=== PATIENT | male | born 1960 | race Caucasian/White ===

== ENCOUNTER 2020-10-08 09:37 | Outpatient (CLI) | payer OTHER | END 2020-10-08 09:38 | disposition home or self-care (01) | LOC: CTENTCT 09:37 | PROVIDERS: ATTEND Specialist | DX: J34.2 Deviated nasal septum (principal) | CPT/HCPCS: 70486 ==

== ENCOUNTER 2020-10-25 16:41 | Outpatient (CLI) | payer OTHER ==
[2020-10-26 04:51] LABS: SARS-CoV-2 PCR by NAA Not Detected (NotDetected)
== END 2020-10-25 16:42 | disposition home or self-care (01) ==
LOC: LABBT 16:41
PROVIDERS: ATTEND Specialist
DX: Z01.818 Encounter for other preprocedural examination (principal); Z20.822 Contact with and (suspected) exposure to COVID-19
CPT/HCPCS: 87635; 93005; 93010; U0003; U0005

== ENCOUNTER 2020-10-28 11:40 | Day surgery (SDC) | payer OTHER ==
[2020-10-27 09:43] VITALS: BMI 39.5
[2020-10-28] MEDS ORDERED: AFRIN NASAL MIST 15 ML BOT ONE ×2 (13:14→14:43)
[2020-10-28] MEDS ORDERED: Midazolam HCl 2 mg/2 ml Vial ONE ×2 (14:42→14:57)
[2020-10-28] MEDS ORDERED: Bacitracin Zinc Ointment 30 gm TUBE ONE (14:43)
[2020-10-28] MEDS ORDERED: EPINEPHrine 1 MG/ML AMP ONE (14:43)
[2020-10-28] MEDS ORDERED: Lidocaine 1% w/Epinephrine 1:100K 20 ML VIAL ONE (14:43)
[2020-10-28] MEDS ORDERED: Fentanyl 250 MCG/5 ML VIAL ONE (14:57)
[2020-10-28] MEDS ORDERED: Lidocaine 1% PF 5 ML VIAL ONE (15:26)
[2020-10-28] MEDS ORDERED: Dexamethasone 20 MG/5 ML VIAL ONE (15:26)
[2020-10-28] MEDS ORDERED: Rocuronium Bromide 10 MG/ML (10ML VIAL) ONE (15:26)
[2020-10-28] MEDS ORDERED: PROPOFOL 200 MG/20 ML VIAL ONE (15:26)
[2020-10-28] MEDS ORDERED: Ondansetron PF 4 MG/2 ML Vial ONE (15:26)
[2020-10-28] MEDS ORDERED: Glycopyrrolate 0.2 MG/ML 5 ML SYRINGE ONE (15:26)
[2020-10-28] MEDS ORDERED: Triamcinolone 40 MG/ML VIAL ONE (16:09)
[2020-10-28] MEDS ORDERED: Fentanyl 100 MCG/2 ML VIAL ONE (16:45)
[2020-10-28] MEDS ORDERED: Hydrocodone-Acetamin 15 ML UDCUP ONE (17:37)
[2020-10-28] MEDS ORDERED: Meperidine HCl/PF 25 MG/ML VIAL ONE (17:58)
== END 2020-10-28 18:50 | disposition home or self-care (01) ==
LOC: SDC 11:40
PROVIDERS: ATTEND Specialist
PROC: 09CM8ZZ Extirpation of Matter from Nasal Septum, Via Natural or Artificial Opening Endoscopic (ICD-10-PCS; principal; 2020-10-28)
PROC: 099R8ZZ Drainage of Left Maxillary Sinus, Via Natural or Artificial Opening Endoscopic (ICD-10-PCS; principal; 2020-10-28)
PROC: 09BT8ZZ Excision of Left Frontal Sinus, Via Natural or Artificial Opening Endoscopic (ICD-10-PCS; principal; 2020-10-28)
PROC: 09BV8ZZ Excision of Left Ethmoid Sinus, Via Natural or Artificial Opening Endoscopic (ICD-10-PCS; principal; 2020-10-28)
PROC: 099Q8ZZ Drainage of Right Maxillary Sinus, Via Natural or Artificial Opening Endoscopic (ICD-10-PCS; principal; 2020-10-28)
PROC: 09BS8ZZ Excision of Right Frontal Sinus, Via Natural or Artificial Opening Endoscopic (ICD-10-PCS; principal; 2020-10-28)
PROC: 09BU8ZZ Excision of Right Ethmoid Sinus, Via Natural or Artificial Opening Endoscopic (ICD-10-PCS; principal; 2020-10-28)
PROC: 09BL8ZZ Excision of Nasal Turbinate, Via Natural or Artificial Opening Endoscopic (ICD-10-PCS; principal; 2020-10-28)
DX: J32.9 Chronic sinusitis, unspecified (principal); J34.2 Deviated nasal septum; J34.3 Hypertrophy of nasal turbinates; J34.89 Other specified disorders of nose and nasal sinuses; J33.8 Other polyp of sinus; M19.90 Unspecified osteoarthritis, unspecified site; Z79.899 Other long term (current) drug therapy; Z88.5 Allergy status to narcotic agent; Z87.891 Personal history of nicotine dependence
CPT/HCPCS: J0171; J1100; J2175; J2250; J2405; J2704; J3010; J3301

== ENCOUNTER 2020-11-02 17:56 | Observation (INO) | payer OTHER ==
[2020-11-02] MEDS ORDERED: Ondansetron ODT 4 MG TAB PO PRN (20:44)
[2020-11-02] MEDS ORDERED: Acetaminophen 650 MG Suppository PR PRN (20:44)
[2020-11-02] MEDS ORDERED: Ondansetron PF 4 MG/2 ML Vial IVP PRN (20:44)
[2020-11-02] MEDS ORDERED: Morphine 2 MG/ML VIAL SLOW IVP SCH (20:45)
[2020-11-02] MEDS ORDERED: Heparin 5,000 UNITS/ML VIAL SC SCH (21:00)
[2020-11-02 21:29] LABS: Lactic Acid 1.6 mmol/L (0.5-2.2)
[2020-11-02 21:35] LABS: Albumin 3.9 g/dL (3.4-4.8); Anion Gap 16 mmol/L (10-20); BUN (Urea Nitrogen) 27 mg/dL (8.4-25.7); BUN/Creatinine Ratio 13.64; CK (CPK) 53 U/L (30-200); Calc. Creatinine Clearance 0 mL/min (70-130); Calcium 9.3 mg/dL (7.8-10.44); Carbon Dioxide 20 mmol/L (23-31); Chloride 102 mmol/L (98-107); Glucose 144 mg/dL (80-115); Lipase 26 U/L (8-78); Magnesium 2.1 mg/dL (1.6-2.6); Phosphorus 4.1 mg/dL (2.3-4.7); Potassium 4.5 mmol/L (3.5-5.1); Sodium 133 mmol/L (136-145)
[2020-11-02] MEDS: traMADol HCl 50 MG TAB PO PRN (22:55)
[2020-11-02 23:12] VITALS: BMI 38.7
[2020-11-03] MEDS ORDERED: Sodium Chloride 0.9% 1,000 ML IV SCH (00:15)
[2020-11-03] MEDS: Sodium Chloride 0.9% 1,000 ML IV SCH ×2 (00:21→20:12)
[2020-11-03] MEDS ORDERED: Morphine 2 MG/ML VIAL SLOW IVP SCH (00:30)
[2020-11-03] MEDS: traMADol HCl 50 MG TAB PO PRN ×3 (03:22→20:15)
[2020-11-03] MEDS: Acetaminophen 325 MG TAB PO PRN ×2 (03:25→20:07)
[2020-11-03 03:59] LABS: #Basophils 0.1 thou/uL (0.0-0.2); #Lymphocytes 1.6 thou/uL (1.20-3.40); #Monocytes 1.4 thou/uL (0.11-0.59); #Neutrophils 10.3 thou/uL (1.40-6.50); %Basophils 0.4 % (0.0-1.0); %Eosinophils 0.1 % (0.0-10.0); %Lymphocytes 12.1 % (21.0-51.0); %Monocytes 10.2 % (0.0-10.0); %Neutrophils 77.2 % (42.0-75.0); Hemoglobin 13.8 g/dL (14.0-18.0); Mean Corpuscular HGB CONC 33.6 g/dL (32.0-36.0); Mean Corpuscular Hemoglobin 30.5 pg (27.0-31.0); Mean Corpuscular Volume 90.8 fL (78.0-98.0); Mean Platelet Volume 7.9 fL (7.4-10.4); Platelet Count 268 thou/uL (130-400); RBC Distribution Width 12.6 % (11.5-14.5); Red Blood Cell (RBC) Count 4.52 mill/uL (4.70-6.10); White Blood Cell (WBC) Count 13.4 thou/uL (4.8-10.8)
[2020-11-03 04:05] LABS: PTT 30.7 sec (22.9-36.1); Prothrombin Time 13.3 sec (12.0-14.7)
[2020-11-03 04:19] LABS: ALT (SGPT) 62 U/L (8-55); AST (SGOT) 23 U/L (5-34); Albumin 3.7 g/dL (3.4-4.8); Alkaline Phosphatase 96 U/L (40-110); Anion Gap 13 mmol/L (10-20); BUN (Urea Nitrogen) 25 mg/dL (8.4-25.7); Bilirubin, Total 0.6 mg/dL (0.2-1.2); Calc. Creatinine Clearance 91 mL/min (70-130); Calcium 8.9 mg/dL (7.8-10.44); Carbon Dioxide 23 mmol/L (23-31); Chloride 106 mmol/L (98-107); Globulin 3.3 g/dL (2.4-3.5); Glucose 119 mg/dL (80-115); Potassium 4.9 mmol/L (3.5-5.1); Sodium 137 mmol/L (136-145)
[2020-11-03] MEDS: MEROPENEM 1 GM/50 ML 1 GM in Premix Bag 1 BAG IVPB SCH ×2 (04:29→15:51)
[2020-11-03] MEDS ORDERED: VANCOMYCIN 2 GRAM/400 ML BAG 2 GM in Premix Bag 1 BAG IVPB SCH (05:00)
[2020-11-03] MEDS ORDERED: Fentanyl 100 MCG/2 ML VIAL ONE (06:39)
[2020-11-03] MEDS ORDERED: SUGAMMADEX SODIUM 500 MG/5 ML VIAL ONE (06:39)
[2020-11-03 08:44] LABS: SARS-CoV-2 NAA Rapid Test Not Detected (NotDetected)
[2020-11-03] MEDS ORDERED: Iothalamate Meglumine 60% 50 ML VIAL FS ONE (08:48)
[2020-11-03] MEDS ORDERED: AFRIN NASAL MIST 15 ML BOT ONE (08:51)
[2020-11-03] MEDS ORDERED: Rocuronium Bromide 10 MG/ML (10ML VIAL) ONE (09:14)
[2020-11-03] MEDS ORDERED: Ondansetron PF 4 MG/2 ML Vial ONE (09:14)
[2020-11-03] MEDS ORDERED: Lidocaine 1% PF 5 ML VIAL ONE (09:14)
[2020-11-03] MEDS ORDERED: PHENYLEPHRINE-NS 100 MCG/ML 10 ML SYRINGE ONE (09:14)
[2020-11-03] MEDS ORDERED: PROPOFOL 200 MG/20 ML VIAL ONE (09:14)
[2020-11-03] MEDS ORDERED: HYDROcodone/Acetaminophen 5/325 mg Tablet PO PRN ×2 (09:58)
[2020-11-03] MEDS ORDERED: Phenazopyridine HCl 97.5 MG TABLET PO PRN (09:58)
[2020-11-03] MEDS ORDERED: diphenhydrAMINE 25 MG CAP PO PRN (09:58)
[2020-11-03] MEDS ORDERED: Oxybutynin 5 MG TAB PO PRN (09:58)
[2020-11-03] MEDS ORDERED: Promethazine HCl 25 MG/ML VIAL IM PRN (10:04)
[2020-11-03] MEDS ORDERED: HYDROmorphone 2 MG/ML VIAL SLOW IVP PRN (10:04)
[2020-11-03] MEDS ORDERED: Promethazine HCl 25 MG/ML VIAL SLOW IVP PRN (10:04)
[2020-11-03] MEDS ORDERED: Ketorolac Tromethamine 30 MG/ML VIAL IVP PRN (10:04)
[2020-11-03] MEDS ORDERED: Ondansetron HCl/PF 4 MG/2 ML Vial IVP PRN (10:04)
[2020-11-03] MEDS ORDERED: Meperidine HCl/PF 25 MG/ML VIAL SLOW IVP PRN (10:04)
[2020-11-03] MEDS ORDERED: Phenazopyridine HCl 100 MG TAB PO PRN (10:05)
[2020-11-03] MEDS: Famotidine/PF 20 mg/2ml Vial SLOW IVP SCH (20:07)
[2020-11-03] MEDS: Docusate 100 MG CAP PO SCH (20:07)
[2020-11-04] MEDS ORDERED: Sodium Chloride 0.65% Nasal 44 ML BOT EA NARE PRN (02:04)
[2020-11-04] MEDS: MEROPENEM 1 GM/50 ML 1 GM in Premix Bag 1 BAG IVPB SCH (04:50)
[2020-11-04 07:14] LABS: Anion Gap 13 mmol/L (10-20); BUN (Urea Nitrogen) 17 mg/dL (8.4-25.7); Calc. Creatinine Clearance 150 mL/min (70-130); Calcium 8.9 mg/dL (7.8-10.44); Carbon Dioxide 25 mmol/L (23-31); Chloride 103 mmol/L (98-107); Glucose 101 mg/dL (80-115); Potassium 4.5 mmol/L (3.5-5.1); Sodium 136 mmol/L (136-145)
[2020-11-04 07:53] LABS: Hemoglobin 13.1 g/dL (14.0-18.0); Lymphocytes 9 % (21-51); MDiff Complete? YES; Mean Corpuscular HGB CONC 33.5 g/dL (32.0-36.0); Mean Corpuscular Hemoglobin 30.6 pg (27.0-31.0); Mean Corpuscular Volume 91.3 fL (78.0-98.0); Mean Platelet Volume 8.3 fL (7.4-10.4); Monocytes 7 % (0-10); Neutrophil 83 % (42-75); Platelet Count 229 thou/uL (130-400); Platelet Morphology Comment Appears Adequate; RBC Distribution Width 12.5 % (11.5-14.5); RBC Morphology Normal; White Blood Cell (WBC) Count 10.7 thou/uL (4.8-10.8)
[2020-11-04 07:57] VITALS: BP 129/74; TEMP 98.9
[2020-11-04] MEDS ORDERED: Tamsulosin HCl 0.4 MG CAP PO SCH ×2 (09:00)
[2020-11-04] MEDS: Docusate 100 MG CAP PO SCH (09:08)
[2020-11-04] MEDS: Famotidine/PF 20 mg/2ml Vial SLOW IVP SCH (09:08)
== END 2020-11-04 11:20 | disposition home or self-care (01) ==
LOC: T4-A 19:54 → INTOOBSV 19:54 → OBSVTOIN 19:54
PROVIDERS: ADMIT Internal Medicine; ATTEND Family Medicine
PROC: 0T768DZ Dilation of Right Ureter with Intraluminal Device, Via Natural or Artificial Opening Endoscopic (ICD-10-PCS; principal; 2020-11-03)
PROC: BT1DZZZ Fluoroscopy of Right Kidney, Ureter and Bladder (ICD-10-PCS; 2020-11-03)
DX: N13.6 Pyonephrosis (principal); E87.1 Hypo-osmolality and hyponatremia; Z20.822 Contact with and (suspected) exposure to COVID-19; N40.0 Benign prostatic hyperplasia without lower urinary tract symptoms; N17.9 Acute kidney failure, unspecified; E86.9 Volume depletion, unspecified; I12.9 Hypertensive chronic kidney disease with stage 1 through stage 4 chronic kidney disease, or unspecified chronic kidney disease; N18.9 Chronic kidney disease, unspecified; E78.5 Hyperlipidemia, unspecified; Z96.653 Presence of artificial knee joint, bilateral; K21.9 Gastro-esophageal reflux disease without esophagitis; M19.90 Unspecified osteoarthritis, unspecified site; E66.01 Morbid (severe) obesity due to excess calories; E86.0 Dehydration; Z88.5 Allergy status to narcotic agent; Z79.899 Other long term (current) drug therapy; Z68.39 Body mass index [BMI] 39.0-39.9, adult; Z87.891 Personal history of nicotine dependence
CPT/HCPCS: 36415; 71046; 74420; 76770; 80048; 82550; 83605; 83690; 83735; 85025; 87635; 96365; 96372; 96375; 96376; G0378; J2185; J2270; J2405; J2704; J3010; J3370; Q9961; S0028; U0002; U0003; U0005

== ENCOUNTER 2020-11-19 11:14 | Outpatient (CLI) | payer OTHER ==
[2020-11-19] MEDS ORDERED: Furosemide 40 MG/4 ML VIAL ONE (11:29)
== END 2020-11-19 11:15 | disposition home or self-care (01) ==
LOC: CT 11:14 → NM 11:15
PROVIDERS: ATTEND Urology
DX: N13.30 Unspecified hydronephrosis (principal); N28.9 Disorder of kidney and ureter, unspecified; N28.1 Cyst of kidney, acquired
CPT/HCPCS: 74176; 78708; A4641; A9562; J1940

== ENCOUNTER 2021-01-12 09:44 | Outpatient (CLI) | payer OTHER | END 2021-01-12 09:45 | disposition home or self-care (01) | LOC: LABBT 09:44 | PROVIDERS: ATTEND Urology | DX: Z01.818 Encounter for other preprocedural examination (principal); Z12.5 Encounter for screening for malignant neoplasm of prostate; N13.30 Unspecified hydronephrosis; N40.1 Benign prostatic hyperplasia with lower urinary tract symptoms; N28.9 Disorder of kidney and ureter, unspecified; N28.1 Cyst of kidney, acquired; K42.9 Umbilical hernia without obstruction or gangrene; N52.9 Male erectile dysfunction, unspecified; M10.9 Gout, unspecified; R35.1 Nocturia; E66.9 Obesity, unspecified; Z20.822 Contact with and (suspected) exposure to COVID-19 | CPT/HCPCS: 71046; 80048; 81001; 85027; 85610; 85730; 86850; 86900; 86901; 87086; 93005; 93010; U0003; U0005 ==

== ENCOUNTER 2021-01-12 09:45 | Inpatient (IN) | payer OTHER ==
[2021-01-12 13:03] LABS: Hemoglobin 14.7 g/dL (13.5-17.5); Mean Corpuscular HGB CONC 32.5 g/dL (32.0-36.0); Mean Corpuscular Hemoglobin 29.3 pg (27.0-33.0); Mean Corpuscular Volume 90.2 fl (81.2-95.1); Mean Platelet Volume 11.3 fl (7.4-10.4); Platelet Count 251 10x3/uL (150-450); RBC Distribution Width 13.5 % (11.5-14.5); Red Blood Cell (RBC) Count 5.02 10x6/uL (4.32-5.72); White Blood Cell (WBC) Count 7.1 10x3/uL (3.5-10.5)
[2021-01-12 13:05] LABS: INR-International Normal Ratio 0.9; PTT 27.3 sec (22.0-33.0); Prothrombin Time 10.3 sec (9.5-12.1)
[2021-01-12 13:07] LABS: Anion Gap 14 mmol/L (10-20); BUN (Urea Nitrogen) 17 mg/dL (8.4-25.7); Calc. Creatinine Clearance 0 mL/min (70-130); Calcium 9.8 mg/dL (7.8-10.44); Carbon Dioxide 27 mmol/L (23-31); Chloride 105 mmol/L (98-107); Glucose 87 mg/dL (80-115); Potassium 4.6 mmol/L (3.5-5.1); Sodium 141 mmol/L (136-145)
[2021-01-12 13:14] LABS: Bilirubin Neg (Negative); Blood, Urine 25 (Negative); Clarity Clear (Clear); Glucose, Urine (Dipstick) Normal (Negative); Ketone, Urine Negative (Negative); Leukocyte 25 (Negative); Nitrite Negative (Negative); Protein, Urine (Dipstick) 30 mg/dl (Neg-Trace); Urobilinogen Normal mg/dL (Less than 2)
[2021-01-12 13:21] LABS: Bacteria/HPF None Seen HPF (None Seen); Mucous/LPF Rare LPF (<2+); Squamous Epithelial 0-3 HPF (0-3); WBC/HPF 0-3 HPF (0-3)
[2021-01-13 06:31] LABS: SARS-CoV-2 PCR by NAA Not Detected (NotDetected)
[2021-01-13 11:13] VITALS: BMI 39.6
[2021-01-17] MEDS ORDERED: Levofloxacin 500 mg/D5W 100 ml Premix Bag ONE (06:17)
[2021-01-17] MEDS ORDERED: Acetaminophen 500 MG TAB ONE (06:17)
[2021-01-17] MEDS ORDERED: Fentanyl 100 MCG/2 ML VIAL ONE ×3 (06:46→10:56)
[2021-01-17] MEDS ORDERED: Midazolam HCl 2 mg/2 ml Vial ONE (06:47)
[2021-01-17] MEDS ORDERED: Lidocaine 1.5% w/Epi 1:200K 30 ML VIAL (Epid Use) ONE (07:07)
[2021-01-17] MEDS ORDERED: Bupivacaine 0.25% HCL 30 ML VIAL ONE (07:15)
[2021-01-17] MEDS ORDERED: Acetaminophen 325 MG TAB PO PRN (07:20)
[2021-01-17] MEDS ORDERED: Zolpidem Tartrate 5 MG TAB PO PRN (07:30)
[2021-01-17] MEDS ORDERED: Promethazine HCl 25 MG SUPP PR PRN (07:30)
[2021-01-17] MEDS ORDERED: traMADol HCl 50 MG TAB PO PRN (07:30)
[2021-01-17] MEDS ORDERED: Naloxone HCl 0.4 mg/ml Vial IV PRN (07:30)
[2021-01-17] MEDS ORDERED: diphenhydrAMINE 50 MG/ML VIAL IVP PRN (07:30)
[2021-01-17] MEDS ORDERED: Bupivacaine 0.25% 10 ML VIAL EPIDURAL PRN (07:30)
[2021-01-17] MEDS ORDERED: Naloxone HCl 0.4 mg/ml Vial IVP PRN (07:30)
[2021-01-17] MEDS ORDERED: Promethazine HCl 25 MG/ML VIAL IM PRN ×2 (07:30→09:45)
[2021-01-17] MEDS ORDERED: HYDROcodone/Acetaminophen 5/325 mg Tablet PO PRN (07:30)
[2021-01-17] MEDS ORDERED: Hydrocerin (Eucerin) Cream 120 gm Jar TOP PRN (07:30)
[2021-01-17] MEDS ORDERED: diphenhydrAMINE 50 MG/ML VIAL IM PRN (07:30)
[2021-01-17] MEDS ORDERED: Ondansetron PF 4 MG/2 ML Vial IVP PRN (07:30)
[2021-01-17] MEDS ORDERED: PROPOFOL 200 MG/20 ML VIAL ONE (07:35)
[2021-01-17] MEDS ORDERED: Lidocaine 1% PF 5 ML VIAL ONE (07:35)
[2021-01-17] MEDS ORDERED: PHENYLEPHRINE-NS 100 MCG/ML 10 ML SYRINGE ONE (07:35)
[2021-01-17] MEDS ORDERED: Rocuronium Bromide 10 MG/ML (10ML VIAL) ONE (07:35)
[2021-01-17] MEDS ORDERED: Metoclopramide HCl 10 MG/2 ML VIAL ONE (07:35)
[2021-01-17] MEDS ORDERED: ePHEDrine Sulfate 50 MG/10 ML VIAL ONE (07:35)
[2021-01-17] MEDS ORDERED: Ondansetron PF 4 MG/2 ML Vial ONE (07:35)
[2021-01-17] MEDS ORDERED: Glycopyrrolate 0.2 MG/ML 5 ML SYRINGE ONE (07:35)
[2021-01-17] MEDS ORDERED: Mag-Al 1200 mg/1200 mg/30 ML UDCUP PO PRN (09:42)
[2021-01-17] MEDS ORDERED: hydrALAZINE 20 MG/ML VIAL SLOW IVP PRN ×2 (09:42)
[2021-01-17] MEDS ORDERED: Ondansetron HCl/PF 4 MG/2 ML Vial IVP PRN (09:45)
[2021-01-17] MEDS ORDERED: Promethazine HCl 25 MG/ML VIAL IVPB PRN (09:45)
[2021-01-17] MEDS ORDERED: cefTRIAXone\\ROCEPHIN 1 GM in Sodium Chloride 0.9% 100 ML IVPB SCH (10:00)
[2021-01-17 10:53] LABS: #Eosinphils 0.1 thou/uL (0.0-0.7); #Lymphocytes 1.3 thou/uL (1.20-3.40); #Monocytes 0.9 thou/uL (0.11-0.59); #Neutrophils 11.9 thou/uL (1.40-6.50); %Basophils 0.3 % (0.0-1.0); %Eosinophils 0.8 % (0.0-10.0); %Lymphocytes 9.1 % (21.0-51.0); %Monocytes 6.6 % (0.0-10.0); %Neutrophils 83.2 % (42.0-75.0); Mean Corpuscular HGB CONC 34.1 g/dL (32.0-36.0); Mean Corpuscular Hemoglobin 31.2 pg (27.0-31.0); Mean Corpuscular Volume 91.3 fL (78.0-98.0); Mean Platelet Volume 8.2 fL (7.4-10.4); Platelet Count 225 thou/uL (130-400); White Blood Cell (WBC) Count 14.3 thou/uL (4.8-10.8)
[2021-01-17 11:18] LABS: Anion Gap 14 mmol/L (10-20); BUN (Urea Nitrogen) 15 mg/dL (8.4-25.7); Calc. Creatinine Clearance 103 mL/min (70-130); Calcium 8.9 mg/dL (7.8-10.44); Carbon Dioxide 21 mmol/L (23-31); Chloride 109 mmol/L (98-107); Glucose 149 mg/dL (80-115); Potassium 4.3 mmol/L (3.5-5.1); Sodium 140 mmol/L (136-145)
[2021-01-17] MEDS: HYDROcodone/Acetaminophen 5/325 mg Tablet PO PRN ×2 (13:53→17:28)
[2021-01-17] MEDS: Sodium Chloride 0.9% 1,000 ML IV SCH ×3 (13:54→22:30)
[2021-01-17] MEDS: cefTRIAXone\\ROCEPHIN 1 GM in Sodium Chloride 0.9% 100 ML IVPB SCH (15:46)
[2021-01-17] MEDS: diphenhydrAMINE 25 MG CAP PO PRN ×2 (19:03→22:30)
[2021-01-17] MEDS: Amlodipine 5 MG TAB PO SCH (20:15)
[2021-01-17] MEDS: Famotidine/PF 20 mg/2ml Vial SLOW IVP SCH (20:18)
[2021-01-17] MEDS: Tamsulosin HCl 0.4 MG CAP PO SCH (20:18)
[2021-01-17] MEDS: Atorvastatin Calcium 20 MG TAB PO SCH (20:18)
[2021-01-17] MEDS: Docusate 100 MG CAP PO SCH (20:20)
[2021-01-17] MEDS: Fentanyl 5 mcg/Bup 0.075% Cadd 100 ML EPIDURAL SCH (20:20)
[2021-01-17] MEDS ORDERED: Allopurinol 300 MG TAB PO SCH (21:00)
[2021-01-18] MEDS: traMADol HCl 50 MG TAB PO PRN (04:35)
[2021-01-18 05:46] LABS: #Lymphocytes 1.3 thou/uL (1.20-3.40); #Monocytes 1.2 thou/uL (0.11-0.59); #Neutrophils 6.3 thou/uL (1.40-6.50); %Basophils 0.1 % (0.0-1.0); %Eosinophils 0.5 % (0.0-10.0); %Lymphocytes 14.6 % (21.0-51.0); %Monocytes 13.3 % (0.0-10.0); %Neutrophils 71.4 % (42.0-75.0); Mean Corpuscular HGB CONC 32.4 g/dL (32.0-36.0); Mean Corpuscular Volume 92.6 fL (78.0-98.0); Mean Platelet Volume 8.3 fL (7.4-10.4); Platelet Count 205 thou/uL (130-400); RBC Distribution Width 12.9 % (11.5-14.5); Red Blood Cell (RBC) Count 4.31 mill/uL (4.70-6.10); White Blood Cell (WBC) Count 8.9 thou/uL (4.8-10.8)
[2021-01-18 07:38] LABS: Anion Gap 12 mmol/L (10-20); BUN (Urea Nitrogen) 14 mg/dL (8.4-25.7); Calc. Creatinine Clearance 105 mL/min (70-130); Calcium 8.5 mg/dL (7.8-10.44); Carbon Dioxide 26 mmol/L (23-31); Chloride 105 mmol/L (98-107); Glucose 112 mg/dL (80-115); Potassium 4.2 mmol/L (3.5-5.1); Sodium 139 mmol/L (136-145)
[2021-01-18] MEDS: Docusate 100 MG CAP PO SCH ×2 (08:00→21:31)
[2021-01-18] MEDS: Allopurinol 100 MG TAB PO SCH (08:00)
[2021-01-18] MEDS: Famotidine/PF 20 mg/2ml Vial SLOW IVP SCH ×2 (08:00→21:31)
[2021-01-18] MEDS ORDERED: Tamsulosin HCl 0.4 MG CAP PO SCH (09:00)
[2021-01-18] MEDS: Fentanyl 5 mcg/Bup 0.075% Cadd 100 ML EPIDURAL SCH ×2 (09:14→21:55)
[2021-01-18] MEDS: diphenhydrAMINE 25 MG CAP PO PRN ×2 (15:11→21:40)
[2021-01-18] MEDS: cefTRIAXone\\ROCEPHIN 1 GM in Sodium Chloride 0.9% 100 ML IVPB SCH (15:15)
[2021-01-18] MEDS ORDERED: Bisacodyl 10 MG SUPP PR SCH (18:15)
[2021-01-18] MEDS: Amlodipine 5 MG TAB PO SCH (21:30)
[2021-01-18] MEDS: Atorvastatin Calcium 20 MG TAB PO SCH (21:31)
[2021-01-18] MEDS: Tamsulosin HCl 0.4 MG CAP PO SCH (21:32)
[2021-01-19 06:06] LABS: #Eosinphils 0.2 thou/uL (0.0-0.7); #Lymphocytes 1.1 thou/uL (1.20-3.40); #Monocytes 1.3 thou/uL (0.11-0.59); %Basophils 0.5 % (0.0-1.0); %Lymphocytes 11.6 % (21.0-51.0); %Neutrophils 72.9 % (42.0-75.0); Hemoglobin 12.7 g/dL (14.0-18.0); Mean Corpuscular Hemoglobin 30.7 pg (27.0-31.0); Mean Corpuscular Volume 92.8 fL (78.0-98.0); Mean Platelet Volume 8.1 fL (7.4-10.4); Platelet Count 189 thou/uL (130-400); RBC Distribution Width 12.9 % (11.5-14.5); Red Blood Cell (RBC) Count 4.14 mill/uL (4.70-6.10); White Blood Cell (WBC) Count 9.6 thou/uL (4.8-10.8)
[2021-01-19 06:17] LABS: Anion Gap 7 mmol/L (10-20); BUN (Urea Nitrogen) 11 mg/dL (8.4-25.7); Calc. Creatinine Clearance 111 mL/min (70-130); Calcium 8.9 mg/dL (7.8-10.44); Carbon Dioxide 30 mmol/L (23-31); Chloride 104 mmol/L (98-107); Glucose 110 mg/dL (80-115); Potassium 4.3 mmol/L (3.5-5.1); Sodium 137 mmol/L (136-145)
[2021-01-19] MEDS: Allopurinol 100 MG TAB PO SCH (09:29)
[2021-01-19] MEDS: Docusate 100 MG CAP PO SCH ×2 (09:29→20:43)
[2021-01-19] MEDS: Famotidine/PF 20 mg/2ml Vial SLOW IVP SCH ×2 (09:29→20:38)
[2021-01-19] MEDS ORDERED: Fentanyl 5 mcg/Bup 0.075% Cadd 100 ML EPIDURAL SCH (09:30)
[2021-01-19] MEDS: traMADol HCl 50 MG TAB PO PRN ×2 (14:00→22:02)
[2021-01-19] MEDS: cefTRIAXone\\ROCEPHIN 1 GM in Sodium Chloride 0.9% 100 ML IVPB SCH (15:28)
[2021-01-19] MEDS ORDERED: Bisacodyl 10 MG SUPP PR SCH (16:15)
[2021-01-19] MEDS: Atorvastatin Calcium 20 MG TAB PO SCH (20:38)
[2021-01-19] MEDS: Amlodipine 5 MG TAB PO SCH (20:38)
[2021-01-19] MEDS: Tamsulosin HCl 0.4 MG CAP PO SCH (20:38)
[2021-01-19] MEDS: diphenhydrAMINE 25 MG CAP PO PRN (20:38)
[2021-01-20 06:26] LABS: #Eosinphils 0.5 thou/uL (0.0-0.7); #Lymphocytes 1.6 thou/uL (1.20-3.40); #Monocytes 1.1 thou/uL (0.11-0.59); #Neutrophils 5.9 thou/uL (1.40-6.50); %Basophils 0.5 % (0.0-1.0); %Lymphocytes 17.2 % (21.0-51.0); %Monocytes 12.3 % (0.0-10.0); Hemoglobin 11.9 g/dL (14.0-18.0); Mean Corpuscular HGB CONC 34.4 g/dL (32.0-36.0); Mean Corpuscular Hemoglobin 31.3 pg (27.0-31.0); Mean Corpuscular Volume 90.9 fL (78.0-98.0); Mean Platelet Volume 8.3 fL (7.4-10.4); Platelet Count 173 thou/uL (130-400); RBC Distribution Width 12.7 % (11.5-14.5)
[2021-01-20 06:42] LABS: Anion Gap 11 mmol/L (10-20); BUN (Urea Nitrogen) 11 mg/dL (8.4-25.7); Calc. Creatinine Clearance 121 mL/min (70-130); Calcium 8.9 mg/dL (7.8-10.44); Carbon Dioxide 29 mmol/L (23-31); Chloride 102 mmol/L (98-107); Glucose 106 mg/dL (80-115); Potassium 3.6 mmol/L (3.5-5.1); Sodium 138 mmol/L (136-145)
[2021-01-20] MEDS ORDERED: Magnesium Citrate 300 ML BOT PO SCH (07:30)
[2021-01-20] MEDS: Docusate 100 MG CAP PO SCH ×2 (09:41→21:09)
[2021-01-20] MEDS: Famotidine/PF 20 mg/2ml Vial SLOW IVP SCH ×2 (09:41→21:09)
[2021-01-20] MEDS: Allopurinol 100 MG TAB PO SCH (09:41)
[2021-01-20] MEDS: traMADol HCl 50 MG TAB PO PRN (12:20)
[2021-01-20 14:16] LABS: Hemoglobin 11.6 g/dL (14.0-18.0)
[2021-01-20] MEDS: Tamsulosin HCl 0.4 MG CAP PO SCH (21:09)
[2021-01-20] MEDS: Atorvastatin Calcium 20 MG TAB PO SCH (21:09)
[2021-01-20] MEDS: Amlodipine 5 MG TAB PO SCH (21:09)
[2021-01-20] MEDS: diphenhydrAMINE 25 MG CAP PO PRN (21:17)
[2021-01-20] MEDS: HYDROcodone/Acetaminophen 5/325 mg Tablet PO PRN (21:17)
[2021-01-21 05:09] LABS: #Eosinphils 0.5 thou/uL (0.0-0.7); #Lymphocytes 1.6 thou/uL (1.20-3.40); #Monocytes 0.8 thou/uL (0.11-0.59); #Neutrophils 4.4 thou/uL (1.40-6.50); %Basophils 0.4 % (0.0-1.0); %Eosinophils 6.7 % (0.0-10.0); %Lymphocytes 21.7 % (21.0-51.0); %Monocytes 11.4 % (0.0-10.0); %Neutrophils 59.7 % (42.0-75.0); Hemoglobin 11.5 g/dL (14.0-18.0); Mean Corpuscular Hemoglobin 30.1 pg (27.0-31.0); Mean Corpuscular Volume 91.3 fL (78.0-98.0); Platelet Count 195 thou/uL (130-400); RBC Distribution Width 12.7 % (11.5-14.5); Red Blood Cell (RBC) Count 3.82 mill/uL (4.70-6.10); White Blood Cell (WBC) Count 7.4 thou/uL (4.8-10.8)
[2021-01-21 05:27] LABS: Anion Gap 11 mmol/L (10-20); BUN (Urea Nitrogen) 11 mg/dL (8.4-25.7); Calc. Creatinine Clearance 134 mL/min (70-130); Calcium 8.9 mg/dL (7.8-10.44); Carbon Dioxide 29 mmol/L (23-31); Chloride 103 mmol/L (98-107); Glucose 104 mg/dL (80-115); Potassium 3.6 mmol/L (3.5-5.1); Sodium 139 mmol/L (136-145)
[2021-01-21] MEDS: Allopurinol 100 MG TAB PO SCH (07:38)
[2021-01-21] MEDS: Famotidine/PF 20 mg/2ml Vial SLOW IVP SCH (07:38)
[2021-01-21] MEDS: HYDROcodone/Acetaminophen 5/325 mg Tablet PO PRN (07:38)
[2021-01-21] MEDS: Docusate 100 MG CAP PO SCH (07:39)
[2021-01-21] MEDS: diphenhydrAMINE 25 MG CAP PO PRN (07:51)
[2021-01-21 07:58] VITALS: BP 129/84; TEMP 99.1
[2021-01-21] MEDS ORDERED: Famotidine 20 MG TAB PO SCH (09:00)
[2021-01-21] MEDS ORDERED: Polyethylene Glycol 3350 17 GM Packet PO SCH (09:00)
== END 2021-01-21 09:20 | disposition home or self-care (01) | DRG 660 ==
LOC: SURG A 01-17 05:56 → SURG B 01-17 09:42 → EDSTATUS 01-17 09:45
PROVIDERS: ADMIT Urology; ATTEND Urology
PROC: 0TB00ZZ Excision of Right Kidney, Open Approach (ICD-10-PCS; principal; 2021-01-17)
PROC: 0TP Urinary System, Removal (ICD-10-PCS; 2021-01-17)
PROC: 0WQF0ZZ Repair Abdominal Wall, Open Approach (ICD-10-PCS; 2021-01-17)
DX: N13.30 Unspecified hydronephrosis (principal); K42.9 Umbilical hernia without obstruction or gangrene; Z20.822 Contact with and (suspected) exposure to COVID-19; N28.9 Disorder of kidney and ureter, unspecified; N52.9 Male erectile dysfunction, unspecified; M10.9 Gout, unspecified; M19.90 Unspecified osteoarthritis, unspecified site; E78.5 Hyperlipidemia, unspecified; I10 Essential (primary) hypertension; N40.0 Benign prostatic hyperplasia without lower urinary tract symptoms; J32.9 Chronic sinusitis, unspecified; K21.9 Gastro-esophageal reflux disease without esophagitis; E66.01 Morbid (severe) obesity due to excess calories; K59.09 Other constipation; Q60.3 Renal hypoplasia, unilateral; Z88.5 Allergy status to narcotic agent; Z79.899 Other long term (current) drug therapy; Z68.39 Body mass index [BMI] 39.0-39.9, adult; Z87.891 Personal history of nicotine dependence
CPT/HCPCS: 36415; 80048; 81001; 85025; 85027; 85610; 85730; 86850; 86900; 86901; 87086; 88307; J0690; J0696; J1956; J2001; J2250; J2405; J2704; J2765; J3010; J3490; Q0163; S0020; S0028; U0003; U0005

== ENCOUNTER 2021-07-01 11:24 | Outpatient (CLI) | payer OTHER ==
[2021-07-01 12:56] LABS: Hemoglobin 14.1 g/dL (13.5-17.5); Mean Corpuscular HGB CONC 32.6 g/dL (32.0-36.0); Mean Corpuscular Hemoglobin 29.4 pg (27.0-33.0); Mean Corpuscular Volume 90.2 fl (81.2-95.1); Mean Platelet Volume 10.6 fl (7.4-10.4); Platelet Count 262 10x3/uL (150-450); RBC Distribution Width 13.9 % (11.5-14.5); White Blood Cell (WBC) Count 7.1 10x3/uL (3.5-10.5)
[2021-07-01 12:58] LABS: Bilirubin Neg (Negative); Blood, Urine Negative (Negative); Clarity Clear (Clear); Glucose, Urine (Dipstick) Normal (Negative); Ketone, Urine Negative (Negative); Leukocyte Negative (Negative); Nitrite Negative (Negative); Protein, Urine (Dipstick) Negative (Neg-Trace); Urobilinogen Normal mg/dL (Less than 2)
[2021-07-01 13:14] LABS: RBC/HPF None Seen HPF (0-3); WBC/HPF 0-3 HPF (0-3)
[2021-07-01 13:15] LABS: Bacteria/HPF None Seen HPF (None Seen); Squamous Epithelial 0-3 HPF (0-3)
[2021-07-01 13:25] LABS: INR-International Normal Ratio 0.9; Prothrombin Time 10.1 sec (9.5-12.1)
[2021-07-01 13:32] LABS: Anion Gap 14 mmol/L (10-20); BUN (Urea Nitrogen) 20 mg/dL (8.4-25.7); Calc. Creatinine Clearance 0 mL/min (70-130); Calcium 9.7 mg/dL (7.8-10.44); Carbon Dioxide 25 mmol/L (23-31); Chloride 107 mmol/L (98-107); Glucose 94 mg/dL (80-115); Potassium 4.3 mmol/L (3.5-5.1); Sodium 142 mmol/L (136-145)
[2021-07-02 15:29] LABS: SARS-CoV-2 PCR by NAA Not Detected (NotDetected)
== END 2021-07-01 11:25 | disposition home or self-care (01) ==
LOC: LABBT 11:24
PROVIDERS: ATTEND Urology
DX: Z01.818 Encounter for other preprocedural examination (principal); Z12.5 Encounter for screening for malignant neoplasm of prostate; N13.30 Unspecified hydronephrosis; N40.1 Benign prostatic hyperplasia with lower urinary tract symptoms; N28.9 Disorder of kidney and ureter, unspecified; N28.1 Cyst of kidney, acquired; M10.9 Gout, unspecified; N50.811 Right testicular pain; N52.9 Male erectile dysfunction, unspecified; Z20.822 Contact with and (suspected) exposure to COVID-19
CPT/HCPCS: 80048; 81001; 85027; 85610; 85730; 87086; 93005; 93010; U0003; U0005

== ENCOUNTER 2021-07-06 07:20 | Observation (INO) | payer OTHER ==
[2021-07-06] MEDS ORDERED: Levofloxacin 500 mg/D5W 100 ml Premix Bag ONE (08:45)
[2021-07-06] MEDS ORDERED: PROPOFOL 40 ML ONE (09:50)
[2021-07-06] MEDS ORDERED: Lidocaine 1% PF 5 ML VIAL ONE ×2 (09:50→10:14)
[2021-07-06] MEDS ORDERED: PROPOFOL 200 MG/20 ML VIAL ONE (10:14)
[2021-07-06] MEDS ORDERED: Hyoscyamine Sulfate SL 0.125 mg Tablet ONE ×4 (10:59→15:37)
[2021-07-06] MEDS ORDERED: Phenazopyridine HCl 100 MG TAB ONE ×2 (10:59→11:14)
[2021-07-06] MEDS ORDERED: Morphine 4 MG/ML VIAL ONE ×3 (11:09→15:23)
[2021-07-06] MEDS ORDERED: HYDROcodone/Acetaminophen 5/325 mg Tablet ONE (12:34)
[2021-07-06] MEDS ORDERED: Zolpidem Tartrate 5 MG TAB PO PRN (15:37)
[2021-07-06] MEDS ORDERED: hydrALAZINE 20 MG/ML VIAL SLOW IVP PRN ×2 (15:37)
[2021-07-06] MEDS ORDERED: Acetaminophen 500 MG TAB PO PRN (15:37)
[2021-07-06] MEDS ORDERED: Phenazopyridine HCl 97.5 MG TABLET PO PRN (15:37)
[2021-07-06] MEDS ORDERED: Mag-Al 1200 mg/1200 mg/30 ML UDCUP PO PRN (15:37)
[2021-07-06] MEDS ORDERED: Morphine 4 MG/ML VIAL SLOW IVP PRN ×2 (15:37→16:06)
[2021-07-06] MEDS ORDERED: HYDROcodone/Acetaminophen 5/325 mg Tablet PO PRN (15:37)
[2021-07-06] MEDS ORDERED: diphenhydrAMINE 50 MG/ML VIAL IVP PRN (15:37)
[2021-07-06] MEDS ORDERED: traMADol HCl 50 MG TAB PO PRN (15:40)
[2021-07-06 15:56] LABS: #Eosinphils 0.2 thou/uL (0.0-0.7); #Lymphocytes 1.7 thou/uL (1.20-3.40); #Monocytes 0.6 thou/uL (0.11-0.59); #Neutrophils 5.1 thou/uL (1.40-6.50); %Basophils 0.4 % (0.0-1.0); %Eosinophils 2.6 % (0.0-10.0); %Lymphocytes 21.9 % (21.0-51.0); %Monocytes 8.2 % (0.0-10.0); %Neutrophils 66.8 % (42.0-75.0); Hemoglobin 14.2 g/dL (14.0-18.0); Mean Corpuscular HGB CONC 32.9 g/dL (32.0-36.0); Mean Corpuscular Volume 94.4 fL (78.0-98.0); Mean Platelet Volume 7.8 fL (7.4-10.4); Platelet Count 224 thou/uL (130-400); RBC Distribution Width 13.2 % (11.5-14.5); Red Blood Cell (RBC) Count 4.57 mill/uL (4.70-6.10); White Blood Cell (WBC) Count 7.7 thou/uL (4.8-10.8)
[2021-07-06 16:12] LABS: Anion Gap 14 mmol/L (10-20); BUN (Urea Nitrogen) 15 mg/dL (8.4-25.7); Calc. Creatinine Clearance 144 mL/min (70-130); Calcium 9.2 mg/dL (7.8-10.44); Carbon Dioxide 25 mmol/L (23-31); Chloride 105 mmol/L (98-107); Glucose 124 mg/dL (80-115); Potassium 4.5 mmol/L (3.5-5.1); Sodium 139 mmol/L (136-145)
[2021-07-06 16:58] VITALS: BMI 42.7
[2021-07-06] MEDS: HYDROcodone/Acetaminophen 5/325 mg Tablet PO PRN ×2 (17:33→20:36)
[2021-07-06] MEDS: Hyoscyamine Sulfate SL 0.125 mg Tablet SL SCH ×2 (17:34→23:38)
[2021-07-06] MEDS: Docusate 100 MG CAP PO SCH (20:28)
[2021-07-06] MEDS ORDERED: Montelukast Sodium 10 mg Tablet PO SCH (21:00)
[2021-07-06] MEDS ORDERED: Atorvastatin Calcium 20 MG TAB PO SCH (21:00)
[2021-07-06] MEDS ORDERED: Tamsulosin HCl 0.4 MG CAP PO SCH (21:00)
[2021-07-06] MEDS ORDERED: Amlodipine 5 MG TAB PO SCH (21:00)
[2021-07-06] MEDS ORDERED: Allopurinol 300 MG TAB PO SCH (21:00)
[2021-07-06] MEDS: Phenazopyridine HCl 100 MG TAB PO PRN (21:14)
[2021-07-06] MEDS: Sodium Chloride 0.9% 1,000 ML IV SCH (21:48)
[2021-07-07] MEDS: Sodium Chloride 0.9% 1,000 ML IV SCH ×2 (01:45→08:07)
[2021-07-07 05:54] LABS: #Basophils 0.1 thou/uL (0.0-0.2); #Eosinphils 0.3 thou/uL (0.0-0.7); #Lymphocytes 1.8 thou/uL (1.20-3.40); #Monocytes 0.8 thou/uL (0.11-0.59); %Basophils 0.8 % (0.0-1.0); %Eosinophils 4.2 % (0.0-10.0); %Lymphocytes 22.4 % (21.0-51.0); %Monocytes 10.4 % (0.0-10.0); %Neutrophils 62.2 % (42.0-75.0); Hemoglobin 12.9 g/dL (14.0-18.0); Mean Corpuscular HGB CONC 31.7 g/dL (32.0-36.0); Mean Corpuscular Hemoglobin 30.1 pg (27.0-31.0); Mean Platelet Volume 8.3 fL (7.4-10.4); Platelet Count 219 thou/uL (130-400); RBC Distribution Width 13.2 % (11.5-14.5); Red Blood Cell (RBC) Count 4.27 mill/uL (4.70-6.10)
[2021-07-07] MEDS: Hyoscyamine Sulfate SL 0.125 mg Tablet SL SCH (06:00)
[2021-07-07 06:16] LABS: Anion Gap 11 mmol/L (10-20); BUN (Urea Nitrogen) 15 mg/dL (8.4-25.7); Calc. Creatinine Clearance 127 mL/min (70-130); Calcium 9.1 mg/dL (7.8-10.44); Carbon Dioxide 28 mmol/L (23-31); Chloride 107 mmol/L (98-107); Glucose 88 mg/dL (80-115); Potassium 5.2 mmol/L (3.5-5.1); Sodium 141 mmol/L (136-145)
[2021-07-07] MEDS: Docusate 100 MG CAP PO SCH (08:07)
[2021-07-07] MEDS ORDERED: Tamsulosin HCl 0.4 MG CAP PO SCH (09:00)
[2021-07-07] MEDS: HYDROcodone/Acetaminophen 5/325 mg Tablet PO PRN (13:16)
[2021-07-07] MEDS: Phenazopyridine HCl 100 MG TAB PO PRN (13:17)
[2021-07-07 13:43] VITALS: BP 124/76
[2021-07-07 13:46] VITALS: TEMP 98
== END 2021-07-07 15:00 | disposition home or self-care (01) ==
LOC: SDC 07:20 → SJJU 13:41
PROVIDERS: ADMIT Urology; ATTEND Urology
PROC: 0T7D8DZ Dilation of Urethra with Intraluminal Device, Via Natural or Artificial Opening Endoscopic (ICD-10-PCS; principal; 2021-07-07)
DX: N40.1 Benign prostatic hyperplasia with lower urinary tract symptoms (principal); N32.89 Other specified disorders of bladder; E78.5 Hyperlipidemia, unspecified; I10 Essential (primary) hypertension; K21.9 Gastro-esophageal reflux disease without esophagitis; J32.9 Chronic sinusitis, unspecified; E66.9 Obesity, unspecified; Z68.41 Body mass index [BMI] 40.0-44.9, adult; Z79.899 Other long term (current) drug therapy; Z88.5 Allergy status to narcotic agent; Z87.891 Personal history of nicotine dependence
CPT/HCPCS: 36415; 80048; 85025; 96372; 96374; 96375; G0378; J1200; J1956; J2270; J2704; J7050; L8699